=== PATIENT | male | born 1990 | race Two or more races ===

== ENCOUNTER 2024-12-26 01:17 | Emergency (ER) | payer SELFPAY ==
[2024-12-26 01:19] VITALS: BP 167/107; PULSE 97; RESP 18; TEMP 36.7; O2SAT 95
[2024-12-26 01:22] VITALS: BMI 37.6
--- NOTE | 2024-12-26 02:16 | EDNOTE_ITS ---
ED Medical Clearance RME/HPI General Chief complaint: Abdominal Pain Stated complaint: MEDICAL CLEARANCE Time Seen by Provider: 12/26/24 02:12 Source: patient and police Arrival date/time: 12/26/24 01:17 Mode of arrival: ambulatory Limitations: no limitations RME / HPI RME / HPI Narrative: Dr. Rodriguez?s Main ED Evaluation: 34-year-old male brought to the emergency department by law enforcement for medical clearance prior to incarceration. He reports right rib cage pain, but does not describe any associated trauma, injury, or exacerbating events. He denies any additional symptoms, including shortness of breath, cough, chest pain, abdominal pain, nausea, vomiting, or dizziness. The patient was offered imaging studies, to further evaluate the cause of his rib pain, but he declined all diagnostic procedures. He has no other medical complaints and has not disclosed any relevant past medical history. Despite his refusal of diagnostic workup, the patient appears alert and in no apparent acute distress. Review of Systems Review of Systems Systems Reviewed: All systems reviewed, normal except as documented Past Medical History Social History SMOKING STATUS: Never smoker ED Exam Narrative Physical exam: GENERAL APPEARANCE: alert and oriented x 4, well-developed, well-nourished, no acute distress VITALS: All vitals were reviewed and the pulse ox is 95% on room air, which is normal according to my interpretation. HEENT: Normocephalic, atraumatic; pupils equal, round, reactive to light; EOMI; mucous membranes pink, moist; oropharynx clear NECK: Supple LUNGS: CTABL; no wheezes, no rales, no rhonchi HEART: Regular rate, regular rhythm; normal S1, S2; no murmurs ABDOMEN: non distended; normal BS; soft, no tenderness, no guarding, no rebound; no masses, no organomegaly, no hernia BACK: no CVA tenderness EXTREMITIES: atraumatic; no edema NEUROLOGIC: awake; alert and oriented x4; cranial nerves II-XII grossly intact; no focal sensory or motor deficits PSYCHIATRIC: appropriate mood and affect SKIN: warm, dry, normal color; no rashes General Limitations: Present no limitations Course Quality Measures none Vital Signs Vital signs: Vital Signs Temperature 98.1 F 12/26/24 01:19 Pulse Rate 97 12/26/24 01:19 Respiratory Rate 18 12/26/24 01:19 Blood Pressure 167/107 H 12/26/24 01:19 Pulse Oximetry (%) 95 12/26/24 01:19 Oxygen Delivery Method Room Air 12/26/24 01:19 Medical Clearance MDM Narrative MDM Narrative:: Scribe Attestation: I, Jaida Gamboa, maxine scribing for and in the presence of Dr. Rodriguez. Provider Notation: Although this document has been carefully reviewed, there may still be some phonetic and other typographical errors. These errors are purely grammatical due to imperfections in the software program and should not be construed in any way to compromise the substance of the patient's medical care during this visit. Patient data External records reviewed:: None Clinical information provided by:: patient and law enforcement Social determinants that could affect healthcare access:: none Patient has the following chronic illnesses:: n/a How is presenting disease/condition affected by chronic disease/condition?: no chronic disease Evaluation data The following diagnostics were reviewed and interpreted by me:: radiology e xam(s) Lab and/or radiology exams considered but not ordered:: Chest XR was discussed but patient declined Interpretation Summary: n/a Medications / Prescriptions Medications or Prescriptions considered but not ordered:: n/a Medication administrations:: n/a Consultations Consultation(s) initiated? (list below): No Diagnosis Medical Clearance Differential Diagnosis: other (Rib fracture, Muscle strain, Costochondritis) Most likely diagnosis given after review of the tests above:: Contusion Admission Indicated Admission indicated?: not indicated Admission Request Was there a request for admission?: No Disposition Plan Disposition Plan: Discharge Discharge Attestation Discharge Attestation: The patient and all family members were given an opportunity to ask questions and understood the discharge instructions. Discharge instructions specifically effects, indications for sooner follow up or return to the emergency department, and the expected course of current diagnosis. Patient condition: Stable Discharge Plan Plan Patient Disposition: [facility]/Court/Law Disposition Comment: Stable for discharge Patient condition on transfer: Stable Prescriptions/Referrals Referrals: [facility] [Outside] - In 1 week Problem List Clinical Impression: Contusion Patient/Caregiver Discharge Instructions Discharge Activity: activity as tolerated Education Materials: Bruises (Contusions) Additional Instructions: Please return to the emergency department for any worsening or any further medical problems. Otherwise you should follow-up with your primary care doctor within the next several days or in the family health care clinic. Print Language: Irish Stand Alone Forms: Marilin Award Info., Patient Portal Info Letter
== END 2024-12-26 02:33 ==
LOC: SERX 02:46
PROVIDERS: Emergency Provider Emergency Medicine
DX: Z02.89 Encounter for other administrative examinations (principal); S20.211A Contusion of right front wall of thorax, initial encounter; X58.XXXA Exposure to other specified factors, initial encounter
CPT/HCPCS: 99281

== ENCOUNTER 2024-12-27 21:07 | Emergency (ER) | payer SELFPAY ==
[2024-12-27 21:07] VITALS: BMI 37.6
[2024-12-27 21:52] VITALS: BP 155/96; PULSE 86; RESP 18; TEMP 36.9; O2SAT 95
--- NOTE | 2024-12-27 22:08 | EDRME_ITS ---
Rapid Medical Screening Exam RME Arrival date/time: 12/27/24 21:07 34-year-old male no significant past medical history presents emergency department complaining of right rib pain after he was detained yesterday by police specialist and reports please officer placed me on his right rib chest area. Chief Complaint: Chest Pain Time Seen by Provider: 12/27/24 21:54 Vital signs: Vital Signs Temperature 98.5 F 12/27/24 21:52 Pulse Rate 86 12/27/24 21:52 Respiratory Rate 18 12/27/24 21:52 Blood Pressure 155/96 H 12/27/24 21:52 Pulse Oximetry (%) 95 12/27/24 21:52 Oxygen Delivery Method Room Air 12/27/24 21:52 Vital signs reviewed by provider: Yes
--- NOTE | 2024-12-27 22:08 | XR_ITS ---
Examination: Ribs, right, with PA chest, 5 views Technique: Chest PA, RIBS AP, RPO, LPO, AP coned lower ribs 5 views Exam date and time: February 24, 2025 1016 hrs. Indications: Injury to the right rib today right rib pain Findings: Normal heart size No pneumothorax No acute rib fractures Pleural thickening along the right lateral anterior laceration left lateral thoracic wall Impression: No pneumothorax or pulmonary contusion No acute right rib fractures Bilateral pleural thickening along the lateral chest doran, recommend one-week follow-up PA lateral chest as clinically warranted
[2024-12-27] MEDS: KETOROLAC INJ 60 MG/2 ML VIAL 30 MG IM (22:19)
--- NOTE | 2024-12-28 00:04 | EDNOTE_ITS ---
ED Chest Pain RME/HPI General Chief Complaint: Chest Pain Stated Complaint: RIGHT CHEST AND RIB PAIN Time Seen by Provider: 12/27/24 21:54 Source: patient Arrival date/time: 12/27/24 21:07 34-year-old male no significant past medical history presents emergency department complaining of right rib pain after he was detained yesterday by police captain precinct and reports please officer placed me on his right rib chest area. Patient denies any fever, chills, difficulty breathing, cough, sore throat, or any other associated symptom. Mode of arrival: ambulatory Limitations: no limitations RME / HPI RME / HPI narrative: 12/27/24 21:07 34-year-old male no significant past medical history presents emergency department complaining of right rib pain after he was detained yesterday by police captain precinct and reports please officer placed me on his right rib chest area. Related Data Previous Rx's ?Medication ?Instructions ?Recorded ibuprofen 800 mg tablet 800 mg PO TID PRN fever or p ain 12/28/24 #30 tabs Allergies Allergy/AdvReac Type Severity Reaction Status Date / Time No Known Allergies Allergy Verified 12/27/24 21:10 Review of Systems Review of Systems Systems Reviewed: All systems reviewed, normal except as documented Constitutional Constitutional: Reports system reviewed and no additional complaints, except as documented, Denies body ache(s), Denies chills and Denies fever(s) Eyes Eyes: Reports system reviewed and no additional complaints, except as documented and Denies change in vision ENT Ears, Nose, Mouth, and Throat: Reports system reviewed and no additional complaints, except as documented, Denies disequilibrium, Denies dizziness, Denies sore throat and Denies vertigo Cardiovascular Cardiovascular: Reports system reviewed and no additional complaints, except as documented, Reports chest pain and Denies dyspnea Respiratory Respiratory: Reports system reviewed and no additional complaints, except as documented, Denies chest congestion, Denies cough and Denies dyspnea Gastrointestinal Gastrointestinal: Reports system reviewed and no additional complaints, except a s documented, Denies abdominal pain, Denies nausea and Denies vomiting Musculoskeletal Musculoskeletal: Reports system reviewed and no additional complaints, except as documented, Denies abnormal gait and Denies arthralgias Integumentary/Breasts Skin/Breast: Reports system reviewed and no additional complaints, except as documented, Denies erythema, Denies rash and Denies wounds Neurologic Neurologic: Reports system reviewed and no additional complaints, except as documented, Denies abnormal gait, Denies disequilibrium, Denies dizziness and Denies vertigo Past Medical History Social History SMOKING STATUS: Never smoker ED Exam General Limitations: Present no limitations General appearance: Present alert and in no apparent distress Head Head exam: Present atraumatic Eye Eye exam: Present normal appearance, PERRL and EOMI ENT ENT exam: Present normal exam, normal oropharynx and mucous membranes moist Neck Neck exam: Present normal inspection, full ROM and trachea midline Chest Chest inspection: Present normal inspection and symmetric chest wall rise Respiratory Respiratory exam: Present normal lung sounds bilaterally Cardiovascular Cardiovascular exam: Present regular rate, normal rhythm and normal heart sounds Abdominal Exam Abdominal exam: Present soft and normal bowel sounds Extremities Exam Extremities exam: Present normal inspection and full ROM Back Exam Back exam: Present normal inspection and full ROM Neurological Exam Neurological exam: Present alert, oriented X3 and CN II-XII intact Psychiatric Psychiatric exam: Present normal affect and normal mood Skin Skin exam: Present warm, dry, intact and normal color Course Quality Measures none Orders Category Date Time Status XR ribs RT min 3V w CXR1V Stat Exams 12/27/24 22:08 Completed Ketorolac Inj [Toradol Inj] Med 12/27/24 22:08 Discontinued 30 mg IM X1 ONE Vital Signs Vital signs: Vital Signs Temperature 98.5 F 12/27/24 21:52 Pulse Rate 86 12/27/24 21:52 Respiratory Rate 18 12/27/24 21:52 Blood Pressure 155/96 H 12/27/24 21:52 Pulse Oximetry (%) 95 12/27/24 21:52 Oxygen Delivery Method Room Air 12/27/24 21:52 95% room air within normal limits Chest Pain MDM Narrative MDM Narrative:: 34-year-old male no significant past medical history presents emergency department complaining of right rib pain after he was detained yesterday by police captain precinct and reports please officer placed me on his right rib chest area. Patient denies any fever, chills, difficulty breathing, cough, sore throat, or any other associated symptom. Chest x-ray was unremarkable for any pneumothorax or rib fracture but finding written by radiologist bilateral pleural thickening along the lateral chest wall and recommended a 1 week follow-up PA lateral chest. Patient instructed to follow-up with primary care provider and request repeat chest x-ray at time of follow-up. No adventitious lung sounds on auscultation. Patient nontoxic and is hemodynamically stable. Patient data External records reviewed:: [facility] previous records Clinical information provided by:: patient Social determinants that could affect healthcare access:: none Patient has the following chronic illnesses:: None How is presenting disease/condition affected by chronic disease/condition?: no chronic disease Evaluation data The following diagnostics were reviewed and interpreted by me:: radiology exam(s) Lab and/or radiology exams considered but not ordered:: Ordered Interpretation Summary: Interpreted by me Medications / Prescriptions Medications or Prescriptions considered but not ordered:: Ordered Medication administrations:: Medication Administration History Discontinued Medications Ketorolac Tromethamine (Ketorolac Inj 60 Mg/2 Ml Vial) 30 mg IM X1 ONE Stop: 12/27/24 22:09 Last Admin: 12/27/24 22:19 Dose: 30 mg Documented By: EO -Given Consultations Consultation(s) initiated? (list below): No Diagnosis Chest Pain Differential Diagnosis: fracture of rib, pneumothorax, stable angina, atypical chest pain, st elevation myocardial infarction, costochondritis, chest pain and biliary colic Most likely diagnosis given after review of the tests above:: Contusion of rib Admission Indicated Admission indicated?: not indicated Admission Request Was there a request for admission?: No Disposition Plan Disposition Plan: Discharge Discharge Attestation Discharge Attestation: The patient and all family members were given an opportunity to ask questions and understood the discharge instructions. Discharge instructions specifically effects, indications for sooner follow up or return to the emergency department, and the expected course of current diagnosis. Patient condition: Stable Discharge Plan Plan Patient Disposition: HOME (Self Care) Disposition Comment: Stable Prescriptions/Referrals Prescriptions/Med Rec: New ibuprofen 800 mg tablet 800 mg PO TID PRN (Reason: fever or pain) Qty: 30 0RF Problem List Clinical Impression: Contusion of rib Patient/Caregiver Discharge Instructions Discharge Activity: activity as tolerated Education Materials: Bruises (Contusions), ED Contusion, Rib Additional Instructions: Take ibuprofen or Tylenol as needed for pain. Follow-up with primary care provider in 2 to 3 days and as for repeat chest x- ray. Chest x-ray report was provided. Return to emergency department for any worsening symptoms or as needed. Print Language: Georgian Stand Alone Forms: Marilin Award Info., Patient Portal Info Letter PA/EXTRACTOR AND WRINGER OPERATOR Supervising Physician PA/EXTRACTOR AND WRINGER OPERATOR Supervising Physician: Dr. Rodriguez
== END 2024-12-28 00:09 | disposition home or self-care (01) ==
LOC: SERX 12-28 02:36
PROVIDERS: Emergency Provider Emergency Medicine
DX: S20.211A Contusion of right front wall of thorax, initial encounter (principal); Y35.813A Legal intervention involving manhandling, suspect injured, initial encounter
CPT/HCPCS: 71101; 96372; 99283; J1885

== ENCOUNTER 2025-06-03 19:25 | Emergency (ER) | payer MEDICAID, SELFPAY ==
[2025-06-03 19:28] VITALS: BP 139/81; PULSE 84; RESP 20; TEMP 36.8; O2SAT 96; BMI 37.6
--- NOTE | 2025-06-03 20:02 | XR_ITS ---
Examination: PA lateral chest 2 views TECHNIQUE: Upright PA and lateral chest 2 views Date and time: June 03, 20252005 hours INDICATIONS: Hemoptysis today. FINDINGS: Pneumonia left base. Normal heart size. Right lung clear IMPRESSION: Pneumonia left base
--- NOTE | 2025-06-03 20:20 | EDNOTE_ITS ---
Nausea/Vomit./Diarrhea-RME/HPI General Chief complaint: GI Bleed Stated complaint: CO COUGH BND VOMITING BLOOD Time Seen by Provider: 06/03/25 20:02 Arrival date/time: 06/03/25 19:25 34M with no significant PMH presents to ED with 1 year of intermittent coughing up blood. Patient denies vomiting blood. No change to symptoms, but family members made him come in today to expedite evaluation because something about insurance prevented him from getting outpatient CXR. Patient was previously diagnosed with some type of blood cancer, possibly multiple myeloma (patient states it begins with the letter m. ) However, patient went to see some kind of oncologist who states he doesn't have that cancer. Patient denies SOB, fevers/chills and drug/alcohol use. Used to smoke marijuana but not anymore. Limitations: no limitations Related Data Previous Rx's ?Medication ?Instructions ?Recorded ibuprofen 800 mg tablet 800 mg PO TID PRN fever or p ain 12/28/24 #30 tabs Allergies Allergy/AdvReac Type Severity Reaction Status Date / Time No Known Allergies Allergy Verified 06/03/25 19:34 Review of Systems Review of Systems Systems Reviewed: All systems reviewed, normal except as documented Constitutional Constitutional: Reports system reviewed and no additional complaints, except as documented, Denies fever(s) and Denies headache(s) ENT Ears, Nose, Mouth, and Throat: Denies disequilibrium and Denies headache(s) Cardiovascular Cardiovascular: Reports system reviewed and no additional complaints, except as documented, Denies chest pain and Denies dyspnea Respiratory Respiratory: Reports system reviewed and no additional complaints, except as documented, Reports as per HPI, Reports cough, Denies dyspnea and Reports hemoptysis Gastrointestinal Gastrointestinal: Reports system reviewed and no additional complaints, except as documented, Denies abdominal pain, Denies nausea and Denies vomiting Neurologic Neurologic: Reports system reviewed and no additional complaints, except as documented, Denies confusion, Denies disequilibrium and Denies headache(s) Psychiatric Psychiatric: Denies confusion Past Medical History Social History SMOKING STATUS: Never smoker ED Exam General Limitations: Present no limitations General appearance: Present alert and in no apparent distress Head Head exam: Present atraumatic Eye Eye exam: Present normal appearance, PERRL and EOMI ENT ENT exam: Present normal exam, normal oropharynx and mucous membranes moist Neck Neck exam: Present normal inspection, full ROM and trachea midline Chest Chest inspection: Present normal inspection and symmetric chest wall rise Respiratory Respiratory exam: Present normal lung sounds bilaterally Cardiovascular Cardiovascular exam: Present regular rate, normal rhythm and normal heart sounds Abdominal Exam Abdominal exam: Present soft and normal bowel sounds Extremities Exam Extremities exam: Present normal inspection and full ROM Back Exam Back exam: Present normal inspection and full ROM Neurological Exam Neurological exam: Present alert, oriented X3 and CN II-XII intact Psychiatric Psychiatric exam: Present normal affect and normal mood Skin Skin exam: Present warm, dry, intact and normal color Course Quality Measures none Orders Category Date Time Status CT chest wo con Stat Exams 06/03/25 21:23 Completed XR chest 2V Stat Exams 06/03/25 20:02 Completed CBC Stat Lab 06/03/25 20:35 Completed CMP [Comprehensive Metabolic Panel] Stat Lab 06/03/25 20:35 Completed D-Dimer Stat Lab 06/03/25 20:35 Completed Lactate (Lactic Acid) Stat Lab 06/03/25 20:35 Completed Procalcitonin Stat Lab 06/03/25 20:35 Completed Troponin I Stat Lab 06/03/25 20:35 Completed Vital Signs Vital signs: Vital Signs Temperature 98.3 F 06/03/25 19:28 Pulse Rate 84 06/03/25 19:28 Respiratory Rate 20 06/03/25 19:28 Blood Pressure 139/81 H 06/03/25 19:28 Pulse Oximetry (%) 96 06/03/25 19:28 Oxygen Delivery Method Room Air 06/03/25 19:28 O2 at 96% on RA and WNLs Nausea/Vomiting/Diarrhea MDM Narrative MDM Narrative:: 34M with no significant PMH presents to ED with 1 year of intermittent coughing up blood. Patient denies vomiting blood. No change to symptoms, but family members made him come in today to expedite evaluation because something about insurance prevented him from getting outpatient CXR. Patient was previously diagnosed with some type of blood cancer, possibly multiple myeloma (patient states it begins with the letter m. ) However, patient went to see some kind of oncologist who states he doesn't have that cancer. Patient denies SOB, fevers/chills and drug/alcohol use. Used to smoke marijuana but not anymore. Physical exam reveals clear lungs and normal WOB. Oropharynx clear. Patient is afebrile, calm, and alert. No leukocytosis or gross anemia. CMP unremarkable. Trop and D-dimer normal. XR reveals possible PNA, but CT unremarkable. Fryer Line Helper given. Patient data External records reviewed:: [facility] previous records Clinical information provided by:: patient Social determinants that could affect healthcare access:: none Patient has the following chronic illnesses:: none How is presenting disease/condition affected by chronic disease/condition?: no chronic disease Evaluation data The following diagnostics were reviewed and interpreted by me:: lab results and radiology exam(s) Lab and/or radiology exams considered but not ordered:: ordered Interpretation Summary: above Medications / Prescriptions Medications / Prescriptions considered but not ordered:: not ordered Medication administrations:: n/a Consultations Consultation(s) initiated? (list below): No Diagnosis Nausea Differential Diagnosis: traveler's diarrhea, food poisoning, gastroent eritis, clostridium difficile infection, drug-induced nausea and vomiting, dehydration and other (lung cancer, PNA, PE, cough with hemoptysis) Most likely diagnosis given after review of the tests above:: cough with hemoptysis Admission Indicated Admission indicated?: not indicated Admission Request Was there a request for admission?: No Disposition Plan Disposition Plan: Discharge Discharge Attestation Discharge Attestation: The patient and all family members were given an opportunity to ask questions and understood the discharge instructions. Discharge instructions specifically effects, indications for sooner follow up or return to the emergency department, and the expected course of current diagnosis. Patient condition: Stable Discharge Plan Plan Patient Disposition: HOME (Self Care) Discharge Disposition comment: Stable Prescriptions/Referrals Prescriptions/Med Rec: No Action ibuprofen 800 mg tablet 800 mg PO TID PRN (Reason: fever or pain) Qty: 30 0RF Referrals: No Primary/Family,Physician [Primary Care Provider] - In 1 week Problem List Clinical Impression: Cough with hemoptysis Patient/Caregiver Discharge Instructions Education Materials: ED Hemoptysis Additional Instructions: Please follow-up with PCP within 24-48 hours and return immediately if symptoms worsen. Print Language: [place] Islander Stand Alone Forms: Patient Portal Info Letter RENAE/ISREAL Supervising Physician RENAE/ISREAL Supervising Physician: Dr. Lopez
[2025-06-03 20:48] LABS: Lactate (Lactic Acid) 1.8 mMol/L (0.4-2.0)
[2025-06-03 20:53] LABS: Basophils # (Auto) 0.0 Thou/mm3 (0.0-0.2); Basophils % (Auto) 1 % (0-2.5); Eosinophils # (Auto) 0.1 Thou/mm3 (0.0-0.5); Eosinophils % (Auto) 1 % (0-10); Hematocrit 40.1 % (41.0-53.0); Hemoglobin 14.4 g/dL (13.5-16.0); Immature Granulocytes Auto 0.02 Thou/mm3 (0.00-0.00); Lymphocytes # (Auto) 2.2 Thou/mm3 (1.0-4.8); Lymphocytes % (Auto) 27 % (10-50); Mean Corpuscular HGB Conc 35.9 g/dl (31.0-37.0); Mean Corpuscular Hemoglobin 30.1 pg (25.0-35.0); Mean Corpuscular Volume 84 fL (80-100); Monocytes # (Auto) 0.8 Thou/mm3 (0.0-0.8); Monocytes % (Auto) 10 % (0-12); Neutrophils # (Auto) 4.8 Thou/mm3 (1.8-7.7); Neutrophils % (Auto) 61 % (37-80); Nucleated Red Blood Cell # 0.00 Thou/mm3 (0.00-0.00); Nucleated Red Blood Cell % 0 /100 WBC (0); Platelet Count 167 Thou/mm3 (140-440); RDW Standard Deviation 40.0 fL (35.1-43.9); Red Blood Count 4.79 Miln/mm3 (4.50-5.90); White Blood Count 7.9 Thou/mm3 (3.8-10.6)
[2025-06-03 21:12] LABS: D-Dimer < 250 ng/mL (<600)
--- NOTE | 2025-06-03 21:23 | XR_ITS ---
Examination: CT chest, without intravenous contrast. Sagittal and coronal 2-D reconstructions. Exam date and time: June 03, 2025 1021 hours INDICATIONS: Hemoptysis today CTDI:vol (mGy) 17.6 DLP: (mGycm) 650 Technique: Multiple 3.0 mm axial sections of the chest to been obtained. Bone and lung density settings are obtained. Sagittal and coronal 2-D reconstructions have been obtained. Low dose protocols were performed. One or more of the following dose reduction techniques were used; automated exposure control, adjustment of the mA and/or KV according to patient size, use of iterative reconstruction technique. Findings: No thoracic aortic aneurysm dilatation Pulmonary artery segments are not enlarged Atelectasis in the left lower lobe No pneumonia or pulmonary edema No visualized liver or splenic lesion No pancreatic mass IMPRESSION: No mediastinal lymphadenopathy No pneumonia pulmonary edema or pleural disease Minor subsegmental atelectasis in the lingular segment
[2025-06-03 21:30] LABS: Alanine Aminotransferase 88 U/L (10-49); Albumin, Serum 4.4 gm/dL (3.5-5.0); Albumin/Globulin Ratio 1.5 (1.2-2.2); Alkaline Phosphatase 104 U/L (46-116); Anion Gap 8 (7-16); Aspartate Amino Transferase 83 U/L (0-34); BUN/Creatinine Ratio 9 Ratio (12-20); Bilirubin,Total 1.4 mg/dL (0.3-1.2); Blood Urea Nitrogen 8 mg/dL (9-23); Calcium 9.7 mg/dL (8.3-10.6); Calcium (Corrected) 9.7 mg/dL (8.5-10.1); Carbon Dioxide 25.8 mMol/L (20.0-31.0); Chloride 107 mMol/L (98-107); Creatinine (Component) 0.9 mg/dL (0.6-1.3); Estimated Creatinine Clearance 151.1 mL/min (>60); Globulin 2.9 gm/dL (2.3-3.5); Glucose 198 mg/dL (74-106); Osmolality,Calculated 285 (275-295); Potassium 3.7 mMol/L (3.4-5.1); Procalcitonin 0.07 ng/ml (0.0-0.49); Sodium 141 mMol/L (136-145); Total Protein 7.3 gm/dL (5.7-8.2); Troponin I < 0.002 ng/mL (0.0-0.045); eGFR > 60 See Note
== END 2025-06-03 23:54 | disposition home or self-care (01) ==
PROVIDERS: Physician Assistant; Emergency Provider Emergency Medicine
DX: J18.9 Pneumonia, unspecified organism (principal); R04.2 Hemoptysis; J98.11 Atelectasis
CPT/HCPCS: 36415; 71046; 71250; 80053; 83605; 84145; 84484; 85025; 85379; 99284

== ENCOUNTER 2025-06-11 14:34 | Emergency (ER) | payer MEDICAID, SELFPAY ==
[2025-06-11 14:35] VITALS: BMI 39.0
[2025-06-11 14:45] VITALS: BP 153/89; PULSE 70; RESP 20; TEMP 37.1; O2SAT 96
--- NOTE | 2025-06-11 14:46 | XR_ITS ---
Examination: Knee, right , 3 views Technique: Knee AP, lateral, oblique 3 views Date and time of exam: June 11, 2025, 1452 hrs. Indications: Sudden onset right knee pain beginning 2 months ago. Findings: No fracture or dislocation. Moderate knee effusion. No significant arthritic change. Impression: No fracture. Moderate knee effusion, seen with internal derangement of the knee
[2025-06-11] MEDS: IBUPROFEN TAB 400 MG TABLET 800 MG PO (15:04)
--- NOTE | 2025-06-11 15:19 | EDNOTE_ITS ---
ED Extremity Problem RME/HPI General Chief complaint: Extremity Problem,Nontraumatic Stated complaint: RIGHT KNEE PAIN FOR 2 MONTHS Time Seen by Provider: 06/11/25 14:36 Arrival date/time: 06/11/25 14:34 34-year-old male presents to the emergency department due to complaint of right knee pain patient reports pain worse with movement patient for symptoms ongoing for the last couple of months patient reports no direct trauma Limitations: no limitations Related Data Previous Rx's ?Medication ?Instructions ?Recorded ibuprofen 800 mg tablet 800 mg PO TID PRN fever or p ain 12/28/24 #30 tabs doxycycline monohydrate 100 mg 100 mg PO BID #14 caps 06/04/25 capsule ibuprofen 800 mg tablet 800 mg PO TID PRN pain #30 t abs 06/11/25 Allergies Allergy/AdvReac Type Severity Reaction Status Date / Time No Known Allergies Allergy Verified 06/11/25 14:37 Review of Systems Review of Systems Systems Reviewed: All systems reviewed, normal except as documented Constitutional Constitutional: Reports system reviewed and no additional complaints, except as documented, Denies fever(s) and Denies headache(s) Eyes Eyes: Reports system reviewed and no additional complaints, except as documented and Denies blurry vision ENT Ears, Nose, Mouth, and Throat: Reports system reviewed and no additional complaints, except as documented, Denies headache(s), Denies nasal congestion and Denies nasal discharge Cardiovascular Cardiovascular: Reports system reviewed and no additional complaints, except as documented, Denies chest pain and Denies dyspnea Respiratory Respiratory: Reports system reviewed and no additional complaints, except as documented, Denies chest congestion, Denies cough and Denies dyspnea Gastrointestinal Gastrointestinal: Reports system reviewed and no additional complaints, except as documented and Denies abdominal pain Musculoskeletal Musculoskeletal: Reports system reviewed and no additional complaints, except as documented, Reports arthralgias, Denies deformity, Denies numbness, Reports stiffness and Denies tingling Integumentary/Breasts Skin/Breast: Reports system reviewed and no additional complaints, except as documented and Denies rash Neurologic Neurologic: Reports system reviewed and no additional complaints, except as docu mented, Reports as per HPI, Denies headache(s), Denies numbness and Denies tingling Past Medical History Social History SMOKING STATUS: Never smoker ED Exam General Limitations: Present no limitations General appearance: Present alert and in no apparent distress Head Head exam: Present atraumatic Eye Eye exam: Present normal appearance, PERRL and EOMI ENT ENT exam: Present normal exam, normal oropharynx and mucous membranes moist Neck Neck exam: Present normal inspection, full ROM and trachea midline Chest Chest inspection: Present normal inspection and symmetric chest wall rise Respiratory Respiratory exam: Present normal lung sounds bilaterally Cardiovascular Cardiovascular exam: Present regular rate, normal rhythm and normal heart sounds Abdominal Exam Abdominal exam: Present soft and normal bowel sounds Extremities Exam Extremities exam: Present full ROM and normal capillary refill; Absent joint swelling Back Exam Back exam: Present normal inspection and full ROM Neurological Exam Neurological exam: Present alert, oriented X3, CN II-XII intact, normal gait and reflexes normal; Absent motor sensory deficit Psychiatric Psychiatric exam: Present normal affect and normal mood Skin Skin exam: Present warm, dry, intact and normal color Course Quality Measures none Orders Category Date Time Status nadeem wrap [Splint / Immobilizer] STAT Care 06/11/25 15:21 Completed XR knee RT 3V Stat Exams 06/11/25 14:46 Completed Ibuprofen Tab [Motrin Tab] Med 06/11/25 14:46 Discontinued 800 mg PO X1 ONE Vital Signs Vital signs: Vital Signs Temperature 98.8 F 06/11/25 14:45 Pulse Rate 70 06/11/25 14:45 Respiratory Rate 20 06/11/25 14:45 Blood Pressure 153/89 H 06/11/25 14:45 Pulse Oximetry (%) 96 06/11/25 14:45 Oxygen Delivery Method Room Air 06/11/25 14:45 O2 saturation 96% room air within normal limits Extremity Problem MDM Narrative MDM Narrative:: 34-year-old male presents to the emergency department due to complaint of right knee pain patient reports pain worse with movement patient for symptoms ongoing for the last couple of months patient reports no direct trauma On exam patient has pain to the right knee patient does have full range of motion no redness warmth or swelling X-ray obtained no acute fracture dislocation noted patient given ibuprofen for pain Nadeem wrap applied Patient discharged home in no distress to follow-up with primary care doctor in the next 24 to 48 hours and for any worsening symptoms to return to the ER immediately Patient data External records reviewed:: [facility] previous records Clinical information provided by:: patient Social determinants that could affect healthcare access:: none Patient has the following chronic illnesses:: none How is presenting disease/condition affected by chronic disease/condition?: no chronic disease Evaluation data The following diagnostics were reviewed and interpreted by me:: radiology exam(s) Lab and/or radiology exams considered but not ordered:: RAD OBTAINED Interpretation Summary: Reviewed by me Medications / Prescriptions Medications or Prescriptions considered but not ordered:: Given Medication administrations:: Medication Administration History Discontinued Medications Ibuprofen (Ibuprofen Tab 400 Mg Tablet) 800 mg PO X1 ONE Stop: 06/11/25 14:47 Last Admin: 06/11/25 15:04 Dose: 800 mg Documented By: OA Given Consultations Consultation(s) initiated? (list below): No Diagnosis Extremity Problem Differential Diagnosis: other (Knee pain right) Most likely diagnosis given after review of the tests above:: Knee pain right Admission Indicated Admission indicated?: not indicated Admission Request Was there a request for admission?: No Disposition Plan Disposition Plan: Discharge Discharge Attestation Discharge Attestation: The patient and all family members were given an opportunity to ask questions an d understood the discharge instructions. Discharge instructions specifically effects, indications for sooner follow up or return to the emergency department, and the expected course of current diagnosis. Patient condition: Stable Discharge Plan Plan Patient Disposition: HOME (Self Care) Discharge Disposition comment: Stable Prescriptions/Referrals Prescriptions/Med Rec: New ibuprofen 800 mg tablet 800 mg PO TID PRN (Reason: pain) Qty: 30 0RF No Action ibuprofen 800 mg tablet 800 mg PO TID PRN (Reason: fever or pain) Qty: 30 0RF doxycycline monohydrate 100 mg capsule 100 mg PO BID Qty: 14 0RF Referrals: No Primary/Family,Physician [Primary Care Provider] - 06/13/25 Problem List Clinical Impression: Knee pain, right Patient/Caregiver Discharge Instructions Education Materials: ED Arthralgia Additional Instructions: Please follow up with your primary care doctor in the next 24-48hrs for any worsening symptoms return here immediately Print Language: [place] Stand Alone Forms: Marilin Award Info., Patient Portal Info Letter PA/[employer] Supervising Physician PA/ISREAL Supervising Physician: dr howard
--- NOTE | 2025-06-11 16:46 | PC.NURSE ---
Pt did not answer when name was called from the lobby and was not found outside.
--- NOTE | 2025-06-11 17:28 | PC.NURSE ---
CALLED FROM LOBBY AND NO ANSWER. PT NOT FOUND INSIDE THE E.D. OR OUTSIDE
--- NOTE | 2025-06-11 17:48 | PC.NURSE ---
NA x3 @ 2046
== END 2025-06-11 17:48 | disposition home or self-care (01) ==
PROVIDERS: Emergency Provider Emergency Medicine
DX: M25.561 Pain in right knee (principal)
CPT/HCPCS: 73562; 99283; A9270